=== PATIENT | female | born 1940 | race Caucasian/White ===

== ENCOUNTER 2024-03-30 12:07 | Emergency (ER) | payer MEDICARE, OTHER, SELFPAY ==
[2024-03-30 12:11] VITALS: BP 141/72
--- NOTE | 2024-03-30 14:10 | ED.GENMED ---
History of Present Illness
General
Chief Complaint: Swallowing Problem
Source: patient
Time Seen by Provider: 03/30/24 13:50
History of Present Illness
History of Present Illness:
83-year-old female with past medical history of GERD and hypothyroidism presenting to the emergency department for evaluation after she has experienced 2-3 episodes over the last 3 weeks where she felt as if she were choking on her saliva and was
having a difficult time breathing. Patient went to her ENT and believes she had a laryngoscopic done which did not show any abnormalities but was started on Carafate and omeprazole which she has been taking but without much relief. She states she
feels as if the back of her throat is still scratchy. She notes no change with her symptoms while attempting to eat or drink anything but states she has had a little bit of a lack of appetite with food since this all started. Patient states that
when she does swallow she like she is not able to get the food bolus or liquids down and that the only time she ever had these choking episodes was on her saliva. She notes associated rhinorrhea intermittently at the beginning of this and took 2
doses of Claritin which cleared up the rhinorrhea but was still left with the scratchy throat sensation. The ENT office recommended patient have a swallowing study performed but this was unable to be scheduled until May. Patient decided to
come to the ER because she was afraid that when she lives on her own and does not want to have a choking sensation and thought she could be monitored within the hospital.
Past History
Past History
ED Past Medical History: GERD and Hypothyroidism
ED Past Surgical History: , Orthopedic and Other
Social History
Tobacco: Former smoker
Alcohol: Daily (1 glass of wine)
Drug: None
Personal:
Living: alone
Review of Systems
Review of Systems
All Other Systems: ROS reviewed and negative except as documented in HPI and ROS
Phy Exam
Physical Exam
Physical Exam:
GENERAL: Alert , in no apparent distress
EYE: conjunctiva clear
NECK: Supple, no goiter, no lymphadenopathy, tolerating secretions, no trismus or stridor, swallowing without any difficulty
ENT: o/p clr, mmm. No tonsillar hypertrophy or exudates
CARDIAC: Regular rate and rhythm
LUNGS: Clear breath sounds bilaterally, no acute respiratory distress, no wheezes/rales/rhonchi
NEUROLOGICAL: Alert and oriented
SKIN: Warm and dry, skin intact.
MUSCULOSKELETAL: well perfused.
PSYCH: Normal and appropriate interaction.
Scores
Heart Failure Risk
Heart Failure Risk Score: Not Applicable
Heart Score for Chest Pain Patients
STEMI patient?: Not applicable
Withdrawal Assessment of Alcohol
Withdrawal Assessment Completed?: Not applicable
Course
Orders/Labs/Results
Orders:
Orders
03/30/24 14:09
CR Chest - 2 Views Urgent
Comment:
Reason For Exam: intermittent dysphagia
03/30/24 14:24
Complete Blood Count/With Diff Urgent
Comprehensive Metabolic Panel Urgent
Abnormal Lab Results
03/30/24
14:24
WBC 4.0 L 10^3/uL
(4.8-10.8)
RBC 4.07 L 10^6/uL
(4.20-5.40)
Absolute Lymphs (auto) 1.0 L 10^3/uL
(1.2-3.4)
Monocytes % 9.9 H %
(1.7-9.3)
Sodium 134 L mmol/L
(135-145)
BUN 18 H mg/dl
(7-17)
03/30/24 14:24
03/30/24 14:24
Vital Signs
Initial and Last Documented VS:
Initial Vital Signs
Temp Pulse Resp BP Pulse Ox
98.8 F 68 16 141/72 97
03/30/24 12:11 03/30/24 12:11 03/30/24 12:11 03/30/24 12:11 03/30/24 12:11
Last Documented Vital Signs
Temp Pulse Resp BP Pulse Ox
98.8 F 64 16 146/77 97
03/30/24 12:11 03/30/24 15:29 03/30/24 12:11 03/30/24 15:29 03/30/24 12:11
MDM/Problems Addressed
Differential Diagnosis Includes:
Allergic rhinitis, GERD, eosinophilic esophagitis, Sjogren's or other rheumatologic complications functional dysphagia
MDM/Problems Addressed:
83-year-old female presenting to the emergency department for evaluation of 2 or 3 episodes of intermittent choking on her saliva over the last 3 weeks. No difficulties with solids or liquids. Tolerating secretions in the ER without any
difficulty. Speaking full sentences. No difficulty tolerating secretions or swallowing while in the ER. Symptoms do seem to be somewhat suggestive of an allergic complication given the rhinorrhea. I discussed with patient possibly taking an
additional 1 to 2 weeks of allergy medications given symptoms seem to be somewhat improved while taking this. She is already taking 2 separate GI medications but this does not seem to be GI related. Encouraged continued outpatient follow-up.
Advised patient that I would be unable to admit her to the hospital for monitoring for fear that she could be choking on her saliva and reassured her that despite the symptoms she is still tolerating solids and liquids without any difficulty.
Anticipate discharge home.
*Radiology
Radiology exam reviewed: preliminary read by ED provider (No acute lung pathology. Compression fractures noted which are likely chronic and not contributing to patient's symptomatology today.)
*Pulse Oximetry
Patient hypoxic: no
*Critical Care Note
Total Time (30-74mins, 75-104mins- exclusive of procedures): Not Applicable
Patient Management
Escalation/DeEscalation of care consider admission/obs:
Patient's workup is largely unremarkable. She does have a mild leukopenia which raises suspicion for viral etiology. Patient is stable for outpatient management and aware of return precautions
ED Attending Note
-
Portions of this chart may have been created with voice recognition software.� Occasional wrong word or��sound alike� substitutions may have occurred due to the inherent limitations of voice recognition software.
Discharge Plan
Departure
Patient Disposition: Home (Routine Discharge)
Date of Disposition: 03/30/24
Time of Disposition: 15:09
Patient with high blood pressure during this ER visit?: Yes
Discharge Problem:
Sore throat
Instructions: Sore Throat, Adult (DC)
Referrals:
Rajan Anderson MD [Family Provider] -
Jalen Day MD [Active] - (GI)
Tera Campa MD [Active] - (ENT)
Interventions
Interventions:
*Risk Screen - Suicide Last Done: 03/30/24 13:28
*General Assessment Last Done: 03/30/24 12:11
*Neglect/Abuse Screening Last Done: 03/30/24 13:28
*ED COVID-19 Vaccine History Last Done: 03/30/24 13:28
*Nursing Disposition Last Done: 03/30/24 15:29
IN-Rbnfkm-Oqqvizpybw Assessment Last Done: 03/30/24 13:28
ED- Pulmonary Assessment Last Done: 03/30/24 13:28
ED- Neurological Assessment Last Done: 03/30/24 13:28
ED Swallowing Screen Last Done: 03/30/24 15:28
Discharge Date and Time
Discharge Date/Time: 03/30/24 15:30
Print Language: ANDORRAN
[2024-03-30 14:32] LABS: % Basophils 0.5 % (0-2); % Eosinophils 0.7 % (0-6); % Immature Granulocytes 0.5 % (0-0.5); % Monocytes 9.9 % (1.7-9.3); % Neutrophils 64.4 % (42.2-75.2); Absolute Monocytes 0.4 10^3/uL (0.1-0.6); Absolute Neutrophils 2.6 10^3/uL (1.4-6.5); Hematocrit 37.6 % (37.0-47.0); Hemoglobin 12.5 g/dL (12.0-16.0); Mean Corp Hgb Conc. 33.2 g/dL (33.0-37.0); Mean Corpuscular Hgb 30.7 pg (27.0-31.0); Mean Corpuscular Volume 92.4 fL (81.0-99.0); Mean Platelet Volume 9.8 fL (7.4-10.4); Nucleated Red Blood Cells % 0 %; Platelet Count 197 10^3/uL (130-400); Red Blood Cell Count 4.07 10^6/uL (4.20-5.40)
[2024-03-30 14:44] LABS: ALT (SGPT) 18 U/L (0-35); AST (SGOT) 32 U/L (14-36); Alkaline Phosphatase 82 U/L (38-126); Blood Urea Nitrogen 18 mg/dl (7-17); Carbon Dioxide 26 mmol/L (22-30); Chloride 102 mmol/L (98-107); Glucose 94 mg/dl (70-99); Potassium 4.2 mmol/L (3.5-5.1); Sodium 134 mmol/L (135-145); Total Bilirubin 0.5 mg/dl (0.2-1.3); Total Protein 6.6 g/dl (6.3-8.2); eGFR > 60.00
[2024-03-30 15:29] VITALS: BP 146/77
== END 2024-03-30 15:30 | disposition home or self-care (01) ==
LOC: EMR 12:07
PROVIDERS: Physician Assistant Medical; EMERGENCY PHYSICIAN Emergency Medicine; FAMILY PHYSICIAN Internal Medicine
DX: J02.9 Acute pharyngitis, unspecified (principal); R03.0 Elevated blood-pressure reading, without diagnosis of hypertension; K21.9 Gastro-esophageal reflux disease without esophagitis; E03.9 Hypothyroidism, unspecified; Z87.891 Personal history of nicotine dependence; Z91.048 Other nonmedicinal substance allergy status
CPT/HCPCS: 99283; 71046; 80053; 85025

== ENCOUNTER 2025-08-03 15:26 | Observation (INO) | payer MEDICARE, OTHER, SELFPAY ==
[2025-08-03] VITALS (13 sets, daily range): BP systolic 96–147; BP diastolic 56–79; PULSE 2–89; BMI 21.1; BMI 20.3
--- NOTE | 2025-08-03 09:22 | ED.GENMED ---
History of Present Illness
<YASSINE Segura - Last Filed: 08/03/25 14:30>
General
Chief Complaint: Breathing Problem
Source: patient
Exam Limitations: none
Time Seen by Provider: 08/03/25 09:03
Nursing documentation reviewed up to this point in time: agreed with
History of Present Illness
History of Present Illness:
Patient is a 85-year-old female with past medical history of ALS recently diagnosed 4 to 5 months ago presents to the ER via EMS. Prior to arrival patient had 20 minutes of shortness of breath and chest pressure. She is currently asymptomatic.
Because of ALS that she is not able to speak she does communicate with running her thoughts down. She also reports she has very difficult time swallowing and is unable to do so. She has a feeding tube. She reports she takes nothing by mouth. She
is currently asymptomatic.
Past History
<YASSINE Segura - Last Filed: 08/03/25 14:30>
Past History
ED Past Medical History: GERD and Hypothyroidism
ED Past Surgical History: , Orthopedic and Other
Social History
Tobacco: Former smoker
Alcohol: Daily (1 glass of wine)
Drug: None
Personal:
Living: alone
Phy Exam
<YASSINE Segura - Last Filed: 08/03/25 14:30>
General Physical Exam
General Presentation: no apparent distress
General age: appears stated age
General Skin: warm and dry
General Habitus: normal
General Mental: alert
General Hydration: appears well hydrated
Cardiovascular Exam
Cardiovascular Exam: regular rate/rhythm, no murmur and normal peripheral pulses
Pulmonary Exam
Pulmonary Exam: lungs clear and no respiratory distress
Neurological Exam
Neurological Exam: alert and oriented x3
Musculoskeletal Exam
Musculoskeletal Exam: full ROM
Skin Exam
Skin Exam: normal color and warm/dry
Scores
<YASSINE Segura - Last Filed: 08/03/25 14:30>
Heart Failure Risk
Heart Failure Risk Score: Not Applicable
Course
<YASSINE Segura - Last Filed: 08/03/25 14:30>
Orders/Labs/Results
Orders:
Orders
08/03/25 09:18
IV Insert/Care/Rem.- Treatment PRN
08/03/25 09:19
Electrocardiogram (*1) Stat
Reason for Study: Other
Other Reason for Exam: chest pain
Cardiac Monitoring- Treatment ONCE
EKG- Treatment ONCE
CR Chest - 2 Views Urgent
Comment:
Reason For Exam: sob
08/03/25 09:55
Complete Blood Count/With Diff Urgent
Comprehensive Metabolic Panel Urgent
Troponin I Urgent
08/03/25 11:53
0.9% Sodium Chloride 1000 ml [Nss] 1,000 ml IV BOLUS
08/03/25 11:54
EKG- Treatment ONCE
08/03/25 13:00
Electrocardiogram (*1) Urgent
Reason for Study: Chest Pain
08/03/25 13:10
Troponin I Urgent
08/03/25 14:24
Add On- LAB Urgent
Tests Added?: cardiac bnp
Abnormal Lab Results
08/03/25 08/03/25
09:55 13:10
RBC 4.07 L 10^6/uL
(4.20-5.40)
MCH 32.7 H pg
(27.0-31.0)
Absolute Lymphs (auto) 0.7 L 10^3/uL
(1.2-3.4)
Neutrophils % 79.4 H %
(42.2-75.2)
Lymphocytes % 9.8 L %
(20.5-51.1)
Chloride 96 L mmol/L
(98-107)
Carbon Dioxide 35 H mmol/L
(22-30)
BUN 21 H mg/dl
(7-17)
AST 41 H U/L
(14-36)
Troponin I 0.054 H* D ng/ml
08/03/25 09:55
08/03/25 09:55
Vital Signs
Initial and Last Documented VS:
Initial Vital Signs
Pulse Ox
93
08/03/25 09:08
Last Documented Vital Signs
Temp Pulse Resp BP Pulse Ox
36.5 C 77 17 114/57 93
08/03/25 09:14 08/03/25 14:00 08/03/25 13:30 08/03/25 14:00 08/03/25 14:00
Boating Safety Officer consulted with Physician
Boating Safety Officer consulted with physician?: Yes
Name of Physician Consulted: Alesia
<Nolan Dumas MD - Last Filed: 08/03/25 14:27>
Orders/Labs/Results
Orders:
Orders
08/03/25 09:18
IV Insert/Care/Rem.- Treatment PRN
08/03/25 09:19
Electrocardiogram (*1) Stat
Reason for Study: Other
Other Reason for Exam: chest pain
Cardiac Monitoring- Treatment ONCE
EKG- Treatment ONCE
CR Chest - 2 Views Urgent
Comment:
Reason For Exam: sob
08/03/25 09:55
Complete Blood Count/With Diff Urgent
Comprehensive Metabolic Panel Urgent
Troponin I Urgent
08/03/25 11:53
0.9% Sodium Chloride 1000 ml [Nss] 1,000 ml IV BOLUS
08/03/25 11:54
EKG- Treatment ONCE
08/03/25 13:00
Electrocardiogram (*1) Urgent
Reason for Study: Chest Pain
08/03/25 13:10
Troponin I Urgent
08/03/25 14:24
Add On- LAB Urgent
Tests Added?: cardiac bnp
Abnormal Lab Results
08/03/25 08/03/25
09:55 13:10
RBC 4.07 L 10^6/uL
(4.20-5.40)
MCH 32.7 H pg
(27.0-31.0)
Absolute Lymphs (auto) 0.7 L 10^3/uL
(1.2-3.4)
Neutrophils % 79.4 H %
(42.2-75.2)
Lymphocytes % 9.8 L %
(20.5-51.1)
Chloride 96 L mmol/L
(98-107)
Carbon Dioxide 35 H mmol/L
(22-30)
BUN 21 H mg/dl
(7-17)
AST 41 H U/L
(14-36)
Troponin I 0.054 H* D ng/ml
08/03/25 09:55
08/03/25 09:55
Vital Signs
Initial and Last Documented VS:
Initial Vital Signs
Pulse Ox
93
08/03/25 09:08
Last Documented Vital Signs
Temp Pulse Resp BP Pulse Ox
36.5 C 77 17 114/57 93
08/03/25 09:14 08/03/25 14:00 08/03/25 13:30 08/03/25 14:00 08/03/25 14:00
<YASSINE Segura - Last Filed: 08/03/25 14:30>
MDM/Problems Addressed
Differential Diagnosis Includes:
not limited to: ALS exacerbation ACS
MDM/Problems Addressed:
Patient is a 20-year-old female with ALS presents with shortness of breath mild chest pressure this morning. She present asymptomatic. No acute elevation on EKG however short run of SVT on initial EKG.
Patient's second troponin is elevated . no c/o of l/e swelling no pmh of CAD. lungs cta. neg chest. d/c w/ DR Dumas will adm
Chronic conditions affecting care:
ALS
<YASSINE Segura - Last Filed: 08/03/25 14:30>
*Radiology
Radiology exam reviewed: radiology read reviewed
*Pulse Oximetry
SaO2: 94
Oxygen Mode of Delivery: Room air
Patient hypoxic: no
*EKG
Interpreted by ED Provider?: Yes
Heart Rate: 107
Rate: tachycardiac
Rhythm: sinus and other (short run of svt )
Ischemia: no ischemia
*Critical Care Note
Total Time (30-74mins, 75-104mins- exclusive of procedures): Not Applicable
ED Attending Note
<YASSINE Segura - Last Filed: 08/03/25 14:30>
-
Portions of this chart may have been created with voice recognition software.� Occasional wrong word or��sound alike� substitutions may have occurred due to the inherent limitations of voice recognition software.
<Nolan Dumas MD - Last Filed: 08/03/25 14:27>
ED Attending Note
Patient seen and examined by attending physician: Yes
ED Attending Note:
I have seen and evaluated the patient with a [id number] encounter. I have spoken to the advance practicer provider and involved in the medical history, the physical exam, medical decision making.
Evaluation and management service: agree unless noted differently below.
Results interpretation: agree unless noted differently below.
Focused HPI: 85-year-old female with history as noted significant for ALS and chronic dysphagia who presents to the ER for evaluation of shortness of breath. Patient is nonverbal due to her ALS but is able to communicate by writing/typing. She
says that she woke up this morning with shortness of breath that she says chronically has been short of breath since ALS diagnosis but had a more intense episode this morning. No chest pain. She did have some associated lightheadedness. Came to
the ER for assessment. Sounds like her symptoms had resolved currently.
Physical exam: Awake and alert. Nonverbal. Vital signs normal�no tachypnea or hypoxia. Heart rate 80s during my assessment. No murmurs appreciated. Lungs sound clear. No edema in the legs. No JVD.
Medical Decision Makin-year-old female presents for evaluation after episode of shortness of breath. Vitals and exam as above. EKG shows sinus rhythm with short runs of SVT. Chest x-ray shows no acute disease. Labs were significant for
initial negative troponin that on repeat increased to 0.054. Admit for trending of troponins, monitoring and further evaluation.
Discharge Plan
Departure
Prescriptions:
No Action
levothyroxine [Synthroid] 75 mcg Tablet
75 mcg feeding tube DAILY
vitamin B complex [B Complete] Tablet
1 tab feeding tube DAILY
ibuprofen [Motrin] 100 mg/5 mL Suspension
200 mg feeding tube Q6H PRN (Reason: mild pain)
sodium chloride 0.9 % Solution For Nebulization
1 ml INHALATION R DAILY
cholecalciferol (vitamin D3) [Vitamin D3] 25 mcg (1,000 unit) Capsule
25 mcg feeding tube DAILY
ascorbic acid (vitamin C) [Vitamin C] 500 mg/5 mL Syrup
500 mg feeding tube DAILY
magnesium oxide 400 mg magnesium Capsule
400 mg feeding tube DAILY
Referrals:
Rajan Anderson MD [Family Provider, Internal Medicine]
Interventions
Interventions:
*Risk Screen - Suicide Last Done: 08/03/25 09:14
*General Assessment Last Done: 08/03/25 09:14
*Neglect/Abuse Screening Last Done: 08/03/25 09:14
*ED COVID-19 Vaccine History Last Done: 08/03/25 09:58
*ED Influenza Vaccine History Last Done: 08/03/25 09:58
ED- Cardiac Assessment Last Done: 08/03/25 12:00
ED- Pulmonary Assessment Last Done: 08/03/25 12:00
Discharge Date and Time
Print Language: KINYARWANDA
[2025-08-03 10:02] LABS: Hematocrit 39.4 % (37.0-47.0); Hemoglobin 13.3 g/dL (12.0-16.0); Mean Corp Hgb Conc. 33.8 g/dL (33.0-37.0); Mean Corpuscular Volume 96.8 fL (81.0-99.0); Nucleated Red Blood Cells % 0 %; Platelet Count 241 10^3/uL (130-400); Red Cell Dist. Width 12.2 % (11.5-14.5)
[2025-08-03 10:25] LABS: ALT (SGPT) 32 U/L (0-35); AST (SGOT) 41 U/L (14-36); Albumin 4.1 g/dl (3.5-5.0); Alkaline Phosphatase 62 U/L (38-126); Blood Urea Nitrogen 21 mg/dl (7-17); Calcium 9.6 mg/dl (8.4-10.2); Carbon Dioxide 35 mmol/L (22-30); Chloride 96 mmol/L (98-107); Estimated Creatinine Clearance 42 ml/min; Glucose 93 mg/dl (70-99); Potassium 4.3 mmol/L (3.5-5.1); Sodium 135 mmol/L (135-145); Total Protein 7.5 g/dl (6.3-8.2); eGFR > 60.00
[2025-08-03 10:31] LABS: Troponin I 0.019 ng/ml
[2025-08-03] MEDS: NSS 1000 IV (12:45)
[2025-08-03 14:00] LABS: Troponin I 0.054 ng/ml
--- NOTE | 2025-08-03 14:24 | HPS.HSE ---
Addendum entered and electronically signed by Moraima Castellanos MD 08/03/25 15:20:
This is an addendum to the H&P written by Nancy Bhat on 08/03/25. �Patient seen and examined dependently with SYSTEMS SOFTWARE ENGINEER.
85-year-old female past medical history of ALS diagnosed 4 months ago with dysphagia with PEG tube, hypothyroidism, presenting with 20 minutes of shortness of breath and chest pressure.
Vital signs show tachycardia up to 110.
Labs show troponin of 0.019 which increased to 0.054. �Chest x-ray shows no active cardiopulmonary process. �Initial EKG shows sinus tachycardia with premature supraventricular complexes. �Second EKG shows sinus rhythm.
Patient with shortness of breath/chest pressure possibly secondary to run of SVT which is resolved versus ACS. �Trend troponins. Observation. Cardiology will be consulted if rising troponin or recurrent chest pain.
Original Note:
Family Physician
-
Family Physician: Rajan Anderson
Chief Complaint
-
shortness of breath and chest pressure
History of Present Illness
Patient is a 85-year-old female with past medical history significant for ALS, GERD and hypothyroidism who presented to [facility] ED for evaluation of shortness of breath and chest pressure. Patient stated that when she woke this morning she had a period
of gasping for air that was associated with mild chest pressure that did not radiate and palpitations. She has been experiencing increased shortness of breath recently but states this is different than anything that she has experienced before. She
had a sensation of dizziness and everything felt like it was draining from her body, she thought she was going to have a syncopal episode but had no loss of consciousness. Denies any recent illness, fever, chills, diaphoresis, nausea or vomiting.
Medical History
Past Medical History
Past Medical History: Reports Other
Additional Past Medical History:
ALS
GERD
hypothyroidism
Past Surgical History: Reports Other
Additional Past Surgical History:
PEG placement
Social History
Tobacco: Non-smoker
Alcohol: None
Drug: None
Living: With Family
Family History
Family History: Not pertinent
Allergies / Home Medications
Allergies reflects when Allergies were last updated in [employer].
Home Medications with original date entered in [employer]
Allergy/Medication List:
Allergies
Allergy/AdvReac Type Severity Reaction Status Date / Time
nickel Allergy Unknown Verified 08/03/25 09:14
zinc Allergy Unknown Verified 08/03/25 09:14
Home Medications
ascorbic acid (vitamin C) 500 mg/5 mL oral syrup 500 mg feeding tube DAILY Supplement 08/03/25
cholecalciferol (vitamin D3) 25 mcg (1,000 unit) capsule (Vitamin D3) 25 mcg feeding tube DAILY Supplement 08/03/25
ibuprofen 100 mg/5 mL oral suspension 200 mg feeding tube Q6H PRN mild pain 08/03/25
levothyroxine 75 mcg tablet (Synthroid) 75 mcg feeding tube DAILY Thyroid 08/03/25
magnesium oxide 400 mg feeding tube DAILY 08/03/25
sodium chloride 0.9 % for nebulization 1 ml inhalation R DAILY sob 08/03/25
vitamin B complex 1 tab feeding tube DAILY Supplement 08/03/25
Review of Systems
-
History Source: Patient
Constitutional: Denies Fever or Chills
EENT: Denies Sore Throat
Respiratory: Reports Trouble Breathing (increased shortness of breath and feeling need to gasp for air today )
Cardiac: Reports Chest Pain (mild chest pressure ) and Palpitations; Denies Diaphoresis or Syncope
Abdomen/GI: Denies Abdominal Pain, Nausea, Vomiting or Diarrhea
: Denies Dysuria, Frequency or Urgency
Skin: Denies Rash
Neurological: Reports Dizzy; Denies Headache, Weakness or Numbness
Physical Exam
Vital Signs
Vital Signs
Temp Pulse Resp BP Pulse Ox
97.7 F 77 17 114/57 93
08/03/25 09:14 08/03/25 14:00 08/03/25 13:30 08/03/25 14:00 08/03/25 14:00
Physical Exam
General: Well Developed, Well Nourished, No Apparent Distress and Conversant (communicates by writing )
HEENT: NormoCephalic, Moist mucous membranes, PERRLA, Nose Appears Normal and Ears Appear Normal
Respiratory: Clear, Wheezes, Rhonchi, Non Labored Respirations and Decreased Breath Sounds; No Rales
Cardiac: S1/S2 and Regular Rhythm; No Murmur or Peripheral Edema
GI: Soft, Non Tender, Non Distended, Normal Bowel Sounds and Peg Tube
Musculoskeletal: No Clubbing, No Cyanosis and No Edema
Skin: Warm and IV/Catheter Site
Neuro: Awake and AO x 3
Psych: Calm and Intact Judgment/Insight
Laboratory Results
-
08/03/25 09:55
08/03/25 09:55
Laboratory Results
Total Bilirubin 0.5 mg/dl (0.2-1.3) 08/03/25 09:55
AST 41 U/L (14-36) H 08/03/25 09:55
ALT 32 U/L (0-35) 08/03/25 09:55
Alkaline Phosphatase 62 U/L (38-126) 08/03/25 09:55
Troponin I 0.054 ng/ml H* D 08/03/25 13:10
Data Reviewed
-
Diagnostic Radiology: Report Reviewed by me (CXR: No evidence of active cardiopulmonary disease.)
Medical Tests (Nuc Med, Echo, EKG etc): Report Reviewed by me (EKG: NORMAL SINUS RHYTHM)
Lab Data: Labs Reviewed by me (trop 0.019 & 0.054)
Impression/Plan
-
IMPRESSION/PLAN:
#shortness of breath and chest pressure 2/2 SVT vs. ACS vs. progression of ALS
trop 0.019 & 0.054
CXR: No evidence of active cardiopulmonary disease.
EKG: SINUS TACHYCARDIA WITH PREMATURE SUPRAVENTRICULAR COMPLEXES
QTcB >= 480 msec
EKG: NORMAL SINUS RHYTHM
patient SVT resolved
- Admit to telemetry
- consider cardiology consult if troponin increases or more episodes of chest pressure
- trend troponin to peak
#ALS
- continue sodium chloride neb
#hypothyroidism
- continue levothyroxine
#GERD
Code status: full code
DVT prophylaxis: heparin sq
[2025-08-03] MEDS: HEPARIN SC (17:22)
[2025-08-03 19:30] LABS: Troponin I 0.058 ng/ml
[2025-08-03] MEDS: DESENEX/MITRAZOL/ZEASORB 1 APPLIC TOPICAL (20:43)
[2025-08-03] MEDS: SODIUM CHLORIDE 3% FOR INHALATION 1 VIAL INH (22:01)
[2025-08-03] MEDS: HEPARIN 5000 UNITS SC (22:51)
[2025-08-04] VITALS (7 sets, daily range): BP systolic 110–166; BP diastolic 57–65; PULSE 3; BMI 20.3
[2025-08-04 01:14] LABS: Troponin I 0.042 ng/ml
[2025-08-04] MEDS: SYNTHROID 75 MCG TUBE (06:15)
[2025-08-04 07:13] LABS: Troponin I 0.040 ng/ml
[2025-08-04] MEDS: SODIUM CHLORIDE 0.9% 1 VIAL INH (07:37)
[2025-08-04] MEDS: HEPARIN 5000 UNITS SC ×2 (08:32→16:42)
[2025-08-04] MEDS: MAGNESIUM OXIDE TUBE (08:44)
[2025-08-04] MEDS: DESENEX/MITRAZOL/ZEASORB 1 APPLIC TOPICAL (08:45)
[2025-08-04 10:13] LABS: Glycohemoglobin (HgbA1c) 5.2 % (4.0-5.9)
--- NOTE | 2025-08-04 10:15 | CM ---
Chart reviewed and spoke with patient at bedside
Spoke with son Rajan on the phone [phone]
Pt lives alone on the second floor of Rajan's business building
Rajan and his have been helping with ADLs
recent ALS dx and family has been working on getting her moved closer to dtr Nancy [phone]
A full flight steps to enter to her residence
Per son Rajan, pt was able to go to [employer] with son and DIL last weekend
She needs assistance with ADLs and son and DIL assist
DME vent, suction, neb, CPAP and walker
Patient is moving on this Saturday to a rental which would be easier to function with dtr Nancy and her in [facility]
Has a ALS case therapist in [place]
PCP Adrian Anderson
RX plan yes
Pharmacy
hx of [facility] and ALS foundation support
no hx of SNF
Spoke with nurse to discuss dcp needs
DCP; to be discussed. Patient wants to go home with services but son is not sure if she could do 15 steps to enter
Her new place with dtr would be available on Saturday?
CM will continue to follow up for dcp needs
--- NOTE | 2025-08-04 13:08 | W.PN.HOSP.TC ---
Today's Communication/Plan
-
Monitor blood pressure
Monitor heart rate
Check electrolytes
Restart tube feeding
Echo pending
Assessment / Plan
Assessment / Plan
General: Well Developed, Well Nourished, No Apparent Distress and Conversant (communicates by writing )
HEENT: NormoCephalic, Moist mucous membranes, PERRLA, Nose Appears Normal and Ears Appear Normal
Respiratory: Clear, Wheezes, Rhonchi, Non Labored Respirations and Decreased Breath Sounds; No Rales
Cardiac: S1/S2 and Regular Rhythm; No Murmur or Peripheral Edema
GI: Soft, Non Tender, Non Distended, Normal Bowel Sounds and Peg Tube
Musculoskeletal: No Clubbing, No Cyanosis and No Edema
Skin: Warm and IV/Catheter Site
Neuro: Awake and AO x 3
Psych: Calm and Intact Judgment/Insight
# Atypical chest pain
#Troponin peaked and then it down trended in the setting of low blood pressure
#Episode of NSVT
CXR: No evidence of active cardiopulmonary disease.
EKG: noted
- Patient did have episode of hypotension which resolved. Blood pressure is stable now.
- Currently without any chest pain.
- Check echocardiogram
#ALS
# Weakness possibly progression of disease
# Dysphagia likely secondary ALS and on tube feeding
- continue sodium chloride neb
- Restart home bolus feeding regimen-Tricida 325mL Bolus Feed Three Times a Day. 30ML Water Flush before, 30ML Water Flush after.
#hypothyroidism
- continue levothyroxine
#GERD
Code status: full code
DVT prophylaxis: heparin sq
Discussed with patient son at bedside in details
Anticipated Discharge: Within 24 hours
Subjective/Interval History
-
Date of Service: August 04, 2025
Currently on 2 L of oxygen
Currently denies any chest pain at rest
Objective Data
-
Vital Signs:
Vital Signs
Temp Pulse Resp BP Pulse Ox
98.4 F 78 20 121/62 97
08/04/25 12:00 08/04/25 12:00 08/04/25 12:00 08/04/25 12:00 08/04/25 12:00
I&O
08/03/25 08/04/25 08/05/25
06:59 06:59 06:59
Intake Total 385 / 385
Balance 385 / 385
Data Reviewed
-
Total Time Spent with Patient (in minutes): 55
--- NOTE | 2025-08-04 13:59 | WOUNDNOTE ---
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
See H&P for complete history.
PMH: ALS, Hypothyroidism, GERD
Wound Location and type/assessment: Patient admitted with fungal appearing skin under breasts and reddened PEG tube site. No MASD or fungal appearing rash under arms or groin. Per RN Abigail sacrum and heels intact.
Pressure redistribution devices in place: Versa Care Air, turning schedule, OOB with air cushion to chair.
Plan: Patient already using Desenex powder under breasts. Will recommend trying antifungal ointment under breasts as skin is dry appearing. Peg tube site was cleaned and secured per patient preference. Patient instructed on skin care for under
breasts and PEG site. Patient said she has 3 ointments that were ordered by her ALS Doctor to use around PEG sites. Son will bring in ointments so staff can order.
Will confirm orders with hospitalist and update nurse. Updated care plan will follow as needed.
Note to case management of equipment requested for discharge:
Recommend follow up at wound care center upon discharge.
--- NOTE | 2025-08-04 14:02 | WOUNDNOTE ---
RIGHT BREAST FOLDS
--- NOTE | 2025-08-04 14:03 | WOUNDNOTE ---
LEFT BREAST FOLDS
--- NOTE | 2025-08-04 14:03 | WOUNDNOTE ---
PEG TUBE SITE
[2025-08-04 15:05] LABS: Blood Urea Nitrogen 20 mg/dl (7-17); Calcium 9.1 mg/dl (8.4-10.2); Carbon Dioxide 32 mmol/L (22-30); Chloride 101 mmol/L (98-107); Estimated Creatinine Clearance 47 ml/min; Glucose 89 mg/dl (70-99); Magnesium 2.1 mg/dl (1.6-2.3); Potassium 4.5 mmol/L (3.5-5.1); Sodium 136 mmol/L (135-145); eGFR > 60.00
[2025-08-04] MEDS: ANTIFUNGAL CLEAR 1 APPLIC TOPICAL ×2 (15:35→20:45)
[2025-08-04] MEDS: DESENEX/MITRAZOL/ZEASORB TOPICAL (20:45)
[2025-08-05] MEDS: HEPARIN 5000 UNITS SC ×2 (00:34→08:19)
[2025-08-05 03:49] VITALS: BP 139/72
[2025-08-05] MEDS: SYNTHROID 75 MCG TUBE (06:10)
[2025-08-05 07:40] VITALS: BP 159/65
[2025-08-05] MEDS: SODIUM CHLORIDE 3% FOR INHALATION INH (08:05)
[2025-08-05] MEDS: SODIUM CHLORIDE 0.9% 1 VIAL INH (08:09)
[2025-08-05] MEDS: DESENEX/MITRAZOL/ZEASORB 1 APPLIC TOPICAL (08:19)
[2025-08-05] MEDS: ANTIFUNGAL CLEAR 1 APPLIC TOPICAL (08:19)
[2025-08-05] MEDS: MAGNESIUM OXIDE 400 MG TUBE (08:20)
--- NOTE | 2025-08-05 11:01 | W.PN.HOSP.TC ---
Today's Communication/Plan
-
await labs
plan for possible dc later today
can consider asa
Assessment / Plan
Assessment / Plan
General: Well Developed, Well Nourished, No Apparent Distress and Conversant (communicates by writing )
HEENT: NormoCephalic, Moist mucous membranes, PERRLA, Nose Appears Normal and Ears Appear Normal
Respiratory: Clear, no Wheezes, Rhonchi, Non Labored Respirations and Decreased Breath Sounds; No Rales
Cardiac: S1/S2 and Regular Rhythm; No Murmur or Peripheral Edema
GI: Soft, Non Tender, Non Distended, Normal Bowel Sounds and Peg Tube
Musculoskeletal: No Clubbing, No Cyanosis and No Edema
Skin: Warm and IV/Catheter Site
Neuro: Awake and AO x 3
Psych: Calm and Intact Judgment/Insight
# Atypical chest pain
#Troponin peaked and then it down trended in the setting of low blood pressure
#Episode of NSVT resolved
CXR: No evidence of active cardiopulmonary disease.
EKG: noted
- Patient did have episode of hypotension which resolved. Blood pressure is stable now.
- Currently without any chest pain.
- Echo was checked with normal left ventricular size, thickness and systolic function. EF 60 to 65%. Mild aortic regurgitation. Probable pericardial fusion. Telemonitoring no further events overnight.
-
#ALS
# Weakness possibly progression of disease
# Dysphagia likely secondary ALS and on tube feeding
- continue sodium chloride neb
- Restarted home bolus feeding regimen-[employer] 325mL Bolus Feed Three Times a Day. 30ML Water Flush before, 30ML Water Flush after.
- intermediate school teacher prognosis poor.
#hypothyroidism
- continue levothyroxine
#GERD
Code status: full code
DVT prophylaxis: heparin sq
More than 30 minutes spent in discharge including
Final examination of the patient
Summarizing hospital stay
Instructions for continuing care to all relevant caregivers
Preparation of discharge records, prescriptions, and referral forms
Total time spent (in minutes): 53
Anticipated Discharge: Today
Subjective/Interval History
-
Date of Service: August 05, 2025
Denies any chest pain
on room air
Denies any palpitations
Objective Data
-
Labs:
Laboratory Results
08/05/25
10:06
Sodium Pending
Potassium Pending
Chloride Pending
Carbon Dioxide Pending
BUN Pending
Creatinine Pending
Glucose Pending
Calcium Pending
Vital Signs:
Vital Signs
Temp Pulse Resp BP Pulse Ox
97.6 F 68 16 159/65 93
08/05/25 07:40 08/05/25 08:09 08/05/25 08:09 08/05/25 07:40 08/05/25 08:09
I&O
08/04/25 08/05/25 08/06/25
06:59 06:59 06:59
Intake Total 770 / 770
Balance 770 / 770
[2025-08-05 12:09] LABS: Blood Urea Nitrogen 16 mg/dl (7-17); Calcium 9.1 mg/dl (8.4-10.2); Carbon Dioxide 31 mmol/L (22-30); Chloride 100 mmol/L (98-107); Estimated Creatinine Clearance 47 ml/min; Glucose 93 mg/dl (70-99); HDL Cholesterol 64 mg/dl; LDL Cholesterol, Calculated 127 mg/dl; Magnesium 2.2 mg/dl (1.6-2.3); Potassium 4.6 mmol/L (3.5-5.1); Sodium 133 mmol/L (135-145); Very Low Density Lipoprotein 17 mg/dl (0-30); eGFR > 60.00
[2025-08-05 12:41] VITALS: BP 143/67
--- NOTE | 2025-08-05 13:20 | W.DCSUMMARY ---
Discharge Summary
Discharge Data
Date of Admission: 08/03/25
Date of Discharge: 08/05/25
-
Pending Results: No
Hospital Course
85-year-old female past medical history of ALS, hypothyroidism, GERD who is presenting from home with complaints of chest pain and weakness. Patient troponin went checked and found to be mildly elevated. Patient troponin peak went was noted that
she had a low blood pressure. IV fluid was started. Patient blood pressure stabilized and was eventually discontinued. Chest x-ray with no evidence of active cardiopulmonary disease or infiltrates. Patient telemetry was reviewed without
significant arrhythmias. Patient underwent echocardiogram .Echo was checked with normal left ventricular size, thickness and systolic function. EF 60 to 65%. Mild aortic regurgitation. Probable pericardial fusion. Telemonitoring no further
events overnight. Patient did not have any further episode of chest pain. Patient was restarted home tube feeding protoocl. Patient was hemodynamically stable. Patient was complaining of weakness which is seem secondary to progression of ALS
disease process and a seems to have stabilized. Patient hemoglobin electrolytes were stable. Will be discharged home. Family was agreement with the plan.
Discharge Plan
-
Patient Disposition: Home with Home Care
Discharge Diagnosis/Procedures: Atypical chest pain
Nonischemic myocardial injury
Mild hyponatremia
Condition: Fair
Diet: Tube feeding
Activity: As tolerated
Driving Restrictions: No driving
Blood Work: BMP in 1 to 2 weeks via primary doctor.
Other Services: [facility]
Activity Restrictions/Additional Instructions:
Wound Care Instructions Under breasts- Clean with saline or soap and water and pat dry. Apply antifungal ointment twice daily.
Peg tube site- Clean around site with soap and water and apply ointments as ordered by your ALS Physician.
Referrals:
Rajan Anderson MD [Family Provider, Internal Medicine]
Prescriptions:
New
aspirin 81 mg tablet,delayed release (DR/EC)
81 mg feeding tube DAILY Qty: 30 0RF
Continued
levothyroxine [Synthroid] 75 mcg Tablet
75 mcg feeding tube DAILY
vitamin B complex Tablet
1 tab feeding tube DAILY
ibuprofen 100 mg/5 mL Suspension
200 mg feeding tube Q6H PRN (Reason: mild pain)
sodium chloride 0.9 % Solution For Nebulization
1 ml INHALATION R DAILY
cholecalciferol (vitamin D3) [Vitamin D3] 25 mcg (1,000 unit) Capsule
25 mcg feeding tube DAILY
ascorbic acid (vitamin C) 500 mg/5 mL Syrup
500 mg feeding tube DAILY
magnesium oxide 400 mg magnesium Capsule
400 mg feeding tube DAILY
Discharge Orders:
Discharge Patient (As Directed); Ordered 08/05/25
Ordered By: Nasim Dickerson
Discharge Date and Time
Discharge Date/Time: 08/05/25 12:50
Print Language: SAMOAN
== END 2025-08-05 12:50 | disposition home health service (06) ==
LOC: 1 ACUTE 15:26
PROVIDERS: Nurse Practitioner; Nurse Practitioner Family; ADMITTING PHYSICIAN Hospitalist; ATTENDING PHYSICIAN Hospitalist; EMERGENCY PHYSICIAN Emergency Medicine; FAMILY PHYSICIAN Internal Medicine
DX: R07.89 Other chest pain (principal); I5A Non-ischemic myocardial injury (non-traumatic); G12.21 Amyotrophic lateral sclerosis; E03.9 Hypothyroidism, unspecified; K21.9 Gastro-esophageal reflux disease without esophagitis; Z79.899 Other long term (current) drug therapy; Z87.891 Personal history of nicotine dependence; E87.1 Hypo-osmolality and hyponatremia; I47.20 Ventricular tachycardia, unspecified
CPT/HCPCS: 71046; 80048; 80053; 80061; 83036; 83735; 83880; 84100; 84484; 85025; 93005; 93306; 94640; 94660; 99285; G0378